=== PATIENT | female | born 2000 | race Caucasian/White ===

== ENCOUNTER 2019-09-21 06:15 | Emergency (ER) | payer BC ==
--- NOTE | 2019-09-21 06:43 | ED ---
GI/ HPI - HPI Summary HPI Summary: Patient presents to the ED with concern for tampon in vagina since last night. She states she is unsure if she got it out, but became concerned. Attempted a few times to dislodge it, but was unable to. Does not feel strings. Denies fevers. Denies abd pain. - History of Current Complaint Chief Complaint: EDUrogenitalProblems Time Seen by Provider: 09/21/19 06:25 Stated Complaint: TAMPON STUCK PER PT Hx Obtained From: Patient Onset/Duration: Started Hours Ago Timing: Constant Pain Intensity: 0 Associated Signs and Symptoms: Positive: Negative - Allergy/Home Medications Allergies/Adverse Reactions: Allergies Allergy/AdvReac Type Severity Reaction Status Date / Time amoxicillin Allergy Rash Verified 09/21/19 06:25 Home Medications: Home Medications NK [No Home Medications Reported] 09/21/19 [History Confirmed 09/21/19] PMH/Surg Hx/FS Hx/Imm Hx Previously Healthy: Yes - Immunization History Hx Pertussis Vaccination: No Immunizations Up to Date: Yes Infectious Disease History: No Infectious Disease History: Denies: Traveled Outside the [place] in Last 30 Days - Social History Occupation: Unemployed, Student Alcohol Use: Weekly Substance Use Type: Reports: None Smoking Status (MU): Never Smoked Tobacco Review of Systems Negative: Fever, Chills, Fatigue, Skin Diaphoresis Negative: Palpitations, Chest Pain Negative: Shortness Of Breath, Cough Genitourinary: Negative Positive: no symptoms reported, see HPI Negative: Arthralgia, Myalgia Skin: Negative All Other Systems Reviewed And Are Negative: Yes Physical Exam Triage Information Reviewed: Yes Vital Signs On Initial Exam: Initial Vitals Temp Pulse Resp BP Pulse Ox 98.1 F 111 18 165/116 98 09/21/19 06:17 09/21/19 06:17 09/21/19 06:17 09/21/19 06:17 09/21/19 06:17 Vital Signs Reviewed: Yes Appearance: Positive: Well-Appearing, Well-Nourished Skin: Positive: Warm, Skin Color Reflects Adequate Perfusion Head/Face: Positive: Normal Head/Face Inspection Eyes: Positive: EOMI, VANNESA, Conjunctiva Clear Respiratory/Lung Sounds: Positive: Breath Sounds Present Cardiovascular: Positive: Normal Abdomen Description: Positive: Nontender Pelvic Exam: Positive: External Exam Normal, Speculum Exam Normal, Other - no FB Neurological: Positive: Speech Normal Psychiatric: Positive: Normal Procedures - Sedation Patient Received Moderate/Deep Sedation with Procedure: No Diagnostics - Vital Signs Vital Signs Temp Pulse Resp BP Pulse Ox 09/21/19 06:17 98.1 F 111 18 165/116 98 - Laboratory Lab Statement: Any lab studies that have been ordered have been reviewed, and results considered in the medical decision making process. GIGU Course/Dx - Course Course Of Treatment: Pelvic exam performed. Speculum exam reveals no FB. Pt will be DC. - Diagnoses Differential Diagnoses - Female: Other - retained tampon Provider Diagnoses: Menstruation Discharge ED - Sign-Out/Discharge Documenting (check all that apply): Patient Departure - Discharge Plan Condition: Good Disposition: HOME - Billing Disposition and Condition Condition: GOOD Disposition: Home
[2019-09-21 06:53] VITALS: BP 0/0
== END 2019-09-21 06:38 | disposition home or self-care (01) ==
LOC: ED 06:15
DX: N92.0 Excessive and frequent menstruation with regular cycle (principal); Z88.0 Allergy status to penicillin
CPT/HCPCS: 99282